=== PATIENT | male | born 1990 | race African-American/Black ===

== ENCOUNTER 2016-06-06 23:36 | Emergency (ER) | payer BC, OTHER ==
[2016-06-06 23:55] VITALS: BP 159/106; TEMP 97.5; O2SAT 99
[2016-06-06] MEDS ORDERED: LIDOCAINE 1% 10 ML VIAL INJ ONE (23:56)
[2016-06-06] MEDS ORDERED: POVIDONE IODINE 10 % 15 ML UD TOP ONE (23:59)
--- NOTE | 2016-06-07 00:39 | ED.PDOC ---
History of Present Illness - General Chief Complaint: Laceration Stated Complaint: lac to right hand Time Seen by Provider: 06/07/16 00:32 Source: patient - History of Present Illness Initial Comments: CUT ON PIECE OF METAL. TETANUS NOT UTD Timing/Duration: 1 hour Severity: mild Improving Factors: nothing Worsening Factors: nothing Associated Symptoms: denies symptoms Allergies/Adverse Reactions: Allergies NO KNOWN ALLERGY Allergy (Verified 06/06/16 23:50) Home Medications: Ambulatory Orders Cephalexin Monohydrate [Keflex] 500 mg PO TID #15 cap 06/07/16 Review of Systems - Review of Systems Constitutional: Denies: chills, fever Musculoskeletal: States: other - R HAND PAIN. Denies: back pain, neck pain Skin: States: other - LACERATION Neurological: Denies: numbness, tingling Past Medical History (General) - Patient Medical History Hx Seizures: No Hx Stroke: No Hx Dementia: No Hx Asthma: No Hx of COPD: No Hx Cardiac Disorders: No Hx Congestive Heart Failure: No Hx Pacemaker: No Hx Hypertension: No Hx Thyroid Disease: No Hx Diabetes: No Hx Gastroesophageal Reflux: No Hx Renal Disease: No Hx Cancer: No Hx of HIV: No Hx Hepatitis C: No Hx MRSA: No MRSA Source:: Wound Surgical History: no surgical history - Vaccination History Hx Tetanus, Diphtheria Vaccination: No Hx Influenza Vaccination: No Hx Pneumococcal Vaccination: No - Social History Hx Tobacco Use: Yes Hx Chewing Tobacco Use: No Hx Alcohol Use: Yes Hx Substance Use: No Hx Substance Use Treatment: No Hx Depression: No Hx Physical Abuse: No Hx Emotional Abuse: No Hx Suspected Abuse: No - Female History Patient : No Family Medical History - Family History Mother Family History: Unknown Living Status: Still Living Hx Family Diabetes: Yes - grandmother has diabetes Physical Exam - Physical Exam General Appearance: Alert, Comfortable, No apparent distress Eye Exam: bilateral normal Peripheral Pulses: radial,right: 2+ Back Exam: no CVA tenderness, no vertebral tenderness Extremity: other - LACERATION TO PALM R HAND BETWEEN THE THENAR AND HYPOTHENAR EMINENCE. Neurologic: normal mood/affect, oriented x 3 Skin Exam: normal color, warm/dry, other - SEE MS Lymphatic: no adenopathy Procedures - Laceration/Wound Repair Right Arm Wound Length (cm): 2.0 - PALMAR ASPECT OF RIGHT HAND Wound's Depth, Shape: flap Wound Explored: no foreign body removed Betadine Prep?: Yes Anesthesia: 1% Lidocaine Wound Repaired With: sutures Suture Size/Type: 4:0, prolene Layer Closure?: No Sterile Dressing Applied?: Yes Splint Applied?: No Departure - Departure Clinical Impression: Laceration of hand Qualifiers: Encounter type: initial encounter Laterality: right Qualifier Code: (S61.411A) Laceration without foreign body of right hand, initial encounter Time of Disposition: 01:02 Disposition: Discharge to Home or Self Care Condition: Excellent Departure Forms: ED Discharge - Pt. Copy, Patient Portal Self Enrollment Instructions: DI for Laceration Repair Prescriptions: Cephalexin Monohydrate [Keflex] 500 mg PO TID #15 cap Home Medications: Ambulatory Orders Cephalexin Monohydrate [Keflex] 500 mg PO TID #15 cap 06/07/16
[2016-06-07] MEDS ORDERED: TETANUS,DIPHTHERIA,PERTUSSIS 1 EA SYG IM ONE (00:50)
== END 2016-06-07 01:10 | disposition home or self-care (01) ==
LOC: ER 23:36
DX: S61.411A Laceration without foreign body of right hand, initial encounter (principal); Z87.891 Personal history of nicotine dependence; W45.8XXA Other foreign body or object entering through skin, initial encounter

== ENCOUNTER 2016-09-12 15:28 | Emergency (ER) | payer SELFPAY ==
--- NOTE | 2016-09-12 16:17 | RAD ---
EXAM DESCRIPTION: XR CHEST 2 VIEWS CLINICAL HISTORY: acute transient left sided chest pain COMPARISON: January 15, 2009 TECHNIQUE: PA/lateral FINDINGS: There is no cardiac or pulmonary abnormality. The lungs are clear. There is no effusion. IMPRESSION: 1. Normal two-view chest. Electronically signed by: Lenny Paige MD 09/12/2016 4:17 PM CDT
--- NOTE | 2016-09-12 16:43 | ED.PDOC ---
History of Present Illness - General Chief Complaint: Abdominal Pain Stated Complaint: Abdominal discomfort x 15 minutes Time Seen by Provider: 09/12/16 15:56 Source: patient Exam Limitations: no limitations - History of Present Illness Initial Comments: The patient is a 26-year-old male presenting to the emergency room secondary to acute onset of severe left-sided chest pain with associated shortness of breath. The pain shortness of breath were transient resolving within about 10- 15 minutes. It was a stabbing pulling type pain. He does have a known history of a hiatal hernia. No history of any pneumothoraces in the past. No fever. No chest pain prior. The pain occurred when he was laying on his left side and then went to get up to a sitting position. No previous rib injuries. No weakness. No palpitations.he did feel a pop at the onset. Symptoms have largely resolved by the time he arrived here. He is still significantly anxious. Timing/Duration: momentarily Severity: severe Improving Factors: nothing Worsening Factors: nothing Associated Symptoms: shortness of breath Allergies/Adverse Reactions: Allergies NO KNOWN ALLERGY Allergy (Verified 09/12/16 15:40) Home Medications: Ambulatory Orders Omeprazole 40 mg PO DAILY 09/12/16 Review of Systems - Review of Systems Constitutional: States: no symptoms reported EENTM: States: no symptoms reported Respiratory: States: short of breath Cardiology: States: chest pain Gastrointestinal/Abdominal: States: no symptoms reported Genitourinary: States: no symptoms reported Musculoskeletal: States: no symptoms reported Skin: States: no symptoms reported Neurological: States: anxiety All other Systems: No Change from Baseline Past Medical History (General) - Patient Medical History Hx Seizures: No Hx Stroke: No Hx Dementia: No Hx Asthma: Yes Hx of COPD: No Hx Cardiac Disorders: No Hx Congestive Heart Failure: No Hx Pacemaker: No Hx Hypertension: No Hx Thyroid Disease: No Hx Diabetes: No Hx Gastroesophageal Reflux: No Hx Renal Disease: No Hx Cancer: No Hx of HIV: No Hx Hepatitis C: No Hx MRSA: No MRSA Source:: Wound Surgical History: tonsillectomy - Vaccination History Hx Tetanus, Diphtheria Vaccination: Yes Hx Influenza Vaccination: No Hx Pneumococcal Vaccination: No - Social History Hx Tobacco Use: No Hx Chewing Tobacco Use: No Hx Alcohol Use: Yes Hx Substance Use: No Hx Substance Use Treatment: No Hx Depression: No Hx Physical Abuse: No Hx Emotional Abuse: No Hx Suspected Abuse: No - Female History Patient : No Family Medical History - Family History Mother Family History: Unknown Living Status: Still Living Hx Family Diabetes: Yes - grandmother has diabetes Physical Exam - Physical Exam General Appearance: Alert, Anxious, No apparent distress Eye Exam: bilateral normal Ears, Nose, Throat: hearing grossly normal, normal ENT inspection, normal pharynx Neck: non-tender, full range of motion, supple Respiratory: chest non-tender, lungs clear, normal breath sounds, no respiratory distress, no accessory muscle use Cardiovascular/Chest: normal peripheral pulses, regular rate, rhythm, no edema Peripheral Pulses: radial,right: 2+, radial,left: 2+, dorsalis pedis,right: 2+, dorsalis pedis,left: 2+, posterior tibialis,right: 2+, posterior tibialis,left: 2+ Gastrointestinal/Abdominal: non tender, soft Rectal Exam: deferred Back Exam: normal inspection, no CVA tenderness, no vertebral tenderness Extremity: normal range of motion, non-tender, normal inspection, no pedal edema , normal capillary refill Neurologic: alert, normal mood/affect, oriented x 3 Skin Exam: normal color Comments: Vital Signs - 24 hr 09/12/16 15:42 Temperature 98.2 F Pulse Rate [ 92 H Left Radial] Respiratory 18 Rate Blood Pressure 123/73 [Left Arm] O2 Sat by Pulse 96 Oximetry Progress - Progress Progress: 09/12/16 16:43 the patient is a 26-year-old male presenting with acute onset chest pain that was transient. Source is not entirely certain however most likely etiologies include pain from his hiatal hernia getting caught versus pleuritic chest pain or transient costochondral pain. No evidence of pneumothorax on chest x-ray. Shortness of breath has essentially resolved. The patient will be discharged home. ER warnings were given. He should follow-up with his primary care doctor early next week. Departure - Departure Clinical Impression: Chest pain Qualifiers: Chest pain type: unspecified Qualified Code(s): R07.9 - Chest pain, unspecified Disposition: Discharge to Home or Self Care Condition: Fair Departure Forms: ED Discharge - Pt. Copy, Patient Portal Self Enrollment Instructions: DI for Abdominal Pain-Adult Diet: regular diet Activity: increase activity as tolerated Referrals: Ermias Garner MD [Primary Care Provider] - 1-5 Days Home Medications: Ambulatory Orders Omeprazole 40 mg PO DAILY 09/12/16 Additional Instructions: the patient is a 26-year-old male presenting with acute onset chest pain that was transient. Source is not entirely certain however most likely etiologies include pain from his hiatal hernia getting caught versus pleuritic chest pain or transient costochondral pain. No evidence of pneumothorax on chest x-ray. Shortness of breath has essentially resolved. The patient will be discharged home. ER warnings were given. He should follow-up with his primary care doctor early next week.
[2016-09-12 17:13] VITALS: BP 133/81; TEMP 98.3; O2SAT 95
== END 2016-09-12 17:00 | disposition home or self-care (01) ==
LOC: ER 15:28
DX: R07.9 Chest pain, unspecified (principal); K44.9 Diaphragmatic hernia without obstruction or gangrene; R06.02 Shortness of breath; J45.909 Unspecified asthma, uncomplicated

== ENCOUNTER → 2017-06-05 | Outpatient (CLI) | payer BC, OTHER ==
--- NOTE | 2017-06-06 23:43 | US ---
Procedure: US GALLBLADDER Exam Date: 06/05/2017 Ordering Provider: ARSLAN SALGUERO Clinical Indication: GENERALIZED ABDOMINAL PAIN Comparison: None Technique: Real-time ultrasonography was obtained over the right upper quadrant and charter representative images were recorded. Findings: There are no gallstones within the gallbladder lumen. There is no gallbladder wall thickening or pericholecystic fluid. The gallbladder is normal in size and contour. The extrahepatic common duct is normal in size measuring 4.3 mm. The liver is normal in size and contour. There is normal echogenicity throughout the liver. There is no hepatic mass. There is no intrahepatic ductal dilatation. Pancreas is obscured by overlying bowel gas. There is no ascites. Limited evaluation of the right kidney demonstrates no hydronephrosis. Impression: Negative gallbladder ultrasound. Electronically signed by: Joe Hartman MD 06/06/2017 11:42 PM [employer]
== END ==
LOC: US 08:20
PROVIDERS: ATTEND Nurse Practitioner Family
DX: R10.84 Generalized abdominal pain (principal)

== ENCOUNTER 2018-09-16 11:23 | Emergency (ER) | payer BC, OTHER ==
[2018-09-16] MEDS: KETOROLAC TROMETHAMINE INJ 30 MG/ML VIAL IM ONE (11:48)
[2018-09-16] MEDS: ONDANSETRON ODT 8 MG TAB SL ONE (11:48)
[2018-09-16 11:52] VITALS: TEMP 98.1
[2018-09-16 12:38] VITALS: BP 104/63; O2SAT 97
--- NOTE | 2018-09-16 12:38 | ED.PDOC ---
History of Present Illness - General Chief Complaint: General Time Seen by Provider: 09/16/18 11:39 Source: patient Exam Limitations: no limitations - History of Present Illness Initial Comments: patient comes in today for 1 day history of body aches and nausea. He denies any fever, chills, cough or cold symptoms. He has no sore throat but some loose stools. No sick contacts that he is aware of. He states he was working at the [employer] and just wanted to go home because he wasn't feeling well and they said he had to come to the emergency room and be checked out. He has no past medical history withe exception of asthma is only allergies are to Bactrim. Timing/Duration: 24 hours Severity: mild Improving Factors: nothing Worsening Factors: nothing Associated Symptoms: nausea/vomiting, other - body aches Allergies/Adverse Reactions: Allergies Sulfamethoxazole w/Trimethoprim [From Bactrim] Allergy (Verified 09/16/18 11:41) Headache Home Medications: Ambulatory Orders NK 09/16/18 Review of Systems - Review of Systems Constitutional: States: malaise EENTM: States: no symptoms reported. Denies: eye pain, ear discharge, nose congestion, throat pain Respiratory: States: no symptoms reported. Denies: cough, short of breath Cardiology: States: no symptoms reported. Denies: chest pain Gastrointestinal/Abdominal: States: diarrhea, nausea. Denies: abdominal pain, constipation, vomiting Genitourinary: States: no symptoms reported Past Medical History (General) - Patient Medical History Hx Seizures: No Hx Stroke: No Hx Dementia: No Hx Asthma: Yes Hx of COPD: No Hx Cardiac Disorders: No Hx Congestive Heart Failure: No Hx Pacemaker: No Hx Hypertension: No Hx Thyroid Disease: No Hx Diabetes: No Hx Gastroesophageal Reflux: No Hx Renal Disease: No Hx Cancer: No Hx of HIV: No Hx Hepatitis C: No Hx MRSA: No MRSA Source:: Wound Surgical History: tonsillectomy - Vaccination History Hx Tetanus, Diphtheria Vaccination: Yes - 2017 Hx Influenza Vaccination: No Hx Pneumococcal Vaccination: No - Social History Hx Tobacco Use: Yes Hx Chewing Tobacco Use: No Hx Alcohol Use: Yes - Occasional Hx Substance Use: No Hx Substance Use Treatment: No Hx Depression: No Hx Physical Abuse: No Hx Emotional Abuse: No Hx Suspected Abuse: No - Female History Patient : No Family Medical History - Family History Mother Family History: Unknown Living Status: Still Living Hx Family Diabetes: Yes - grandmother has diabetes Physical Exam - Physical Exam General Appearance: Alert, Comfortable, No apparent distress Eye Exam: bilateral normal Ears, Nose, Throat: hearing grossly normal, normal ENT inspection, normal pharynx Neck: non-tender, full range of motion, supple, normal inspection Respiratory: chest non-tender, lungs clear, normal breath sounds Cardiovascular/Chest: normal peripheral pulses, regular rate, rhythm, no edema, no gallop, no murmur Peripheral Pulses: radial,right: 2+, radial,left: 2+ Gastrointestinal/Abdominal: normal bowel sounds, non tender, soft Back Exam: no CVA tenderness Neurologic: alert, oriented x 3 Progress - Results/Orders Results/Orders: 09/16/18 11:45 STREP A SCREEN CULTURE Stat Laboratory Results WBC 6.9 K/mm3 (4.8-10.8) 09/16/18 11:45 RBC 5.06 M/mm3 (4.70-6.10) 09/16/18 11:45 Hgb 15.2 gm/dL (14.0-18.0) 09/16/18 11:45 Hct 45.4 % (42.0-52.0) 09/16/18 11:45 MCV 89.6 fl (80.0-94.0) 09/16/18 11:45 MCH 29.9 pg (27.0-31.0) 09/16/18 11:45 MCHC 33.4 g/dL (33.0-37.0) 09/16/18 11:45 RDW 14.6 % (11.5-14.5) H 09/16/18 11:45 Plt Count 205 K/mm3 (130-400) 09/16/18 11:45 MPV 8.7 fl (7.40-10.4) 09/16/18 11:45 Absolute Neuts (auto) 5.30 K/uL (1.8-6.8) 09/16/18 11:45 Absolute Lymphs (auto) 0.90 K/uL (1.0-3.4) L 09/16/18 11:45 Absolute Monos (auto) 0.60 K/uL (0.2-0.8) 09/16/18 11:45 Absolute Eos (auto) 0.10 K/uL (0.0-0.4) 09/16/18 11:45 Absolute Basos (auto) 0.00 K/uL (0.0-0.1) 09/16/18 11:45 Neutrophils % 77.0 % (42.0-78.0) 09/16/18 11:45 Lymphocytes % 12.8 % (20.0-50.0) L 09/16/18 11:45 Monocytes % 8.4 % (2.0-9.0) 09/16/18 11:45 Eosinophils % 1.3 % (1.0-5.0) 09/16/18 11:45 Basophils % 0.5 % (0.0-2.0) 09/16/18 11:45 Sodium 139 mmol/L (135-145) 09/16/18 11:45 Potassium 3.8 mmol/L (3.6-5.0) 09/16/18 11:45 Chloride 104 mmol/L (101-111) 09/16/18 11:45 Carbon Dioxide 25 mmol/L (21-31) 09/16/18 11:45 Anion Gap 13.8 (12-18) 09/16/18 11:45 BUN 10 mg/dL (7-18) 09/16/18 11:45 Creatinine 0.74 mg/dL (0.6-1.3) 09/16/18 11:45 BUN/Creatinine Ratio 13.5 (10-20) 09/16/18 11:45 Random Glucose 103 mg/dL (70-105) 09/16/18 11:45 Serum Osmolality 276.8 mOsm/L (275-295) 09/16/18 11:45 Calcium 9.5 mg/dL (8.4-10.2) 09/16/18 11:45 Total Bilirubin 0.7 mg/dL (0.2-1.0) 09/16/18 11:45 AST 18 IU/L (10-42) 09/16/18 11:45 ALT 15 IU/L (10-60) 09/16/18 11:45 Alkaline Phosphatase 41 IU/L (42-121) L 09/16/18 11:45 Serum Total Protein 7.8 gm/dL (6.4-8.2) 09/16/18 11:45 Albumin 4.7 g/dl (3.2-5.5) 09/16/18 11:45 Globulin 3.1 gm/dL (2.3-3.5) 09/16/18 11:45 Albumin/Globulin Ratio 1.5 (1.1-1.9) 09/16/18 11:45 Group A Strep Rapid Negative (NEGATIVE) 09/16/18 11:45 Departure - Departure Clinical Impression: Viral syndrome Disposition: Discharge to Home or Self Care Condition: Good Departure Forms: ED Discharge - Pt. Copy, ED Discharge - Work Release, Patient Portal Self Enrollment Referrals: Ermias Garner MD [Primary Care Provider] - 1-2 Weeks Home Medications: Ambulatory Orders NK 09/16/18 Additional Instructions: bland diet and increase liquids, tylenol and motrin otc for pain. Rest and return to ER for severe abdominal pain, intractable emesis. Will need work excuse for today and tomorrow
== END 2018-09-16 12:42 | disposition home or self-care (01) ==
LOC: ER 11:23
DX: B34.9 Viral infection, unspecified (principal); J45.909 Unspecified asthma, uncomplicated; Z87.891 Personal history of nicotine dependence; Z88.2 Allergy status to sulfonamides
CPT/HCPCS: 36415; 80053; 85025; 87070; 87880; J1885

== ENCOUNTER 2019-04-08 20:19 | Emergency (ER) | payer SELFPAY ==
--- NOTE | 2019-04-08 22:17 | RAD ---
EXAM: XR Chest, 1 View CLINICAL HISTORY: The patient is 28 years old and is Male; chest tightness, cough, fever TECHNIQUE: Frontal view of the chest. COMPARISON: Chest radiograph September 12, 2016. FINDINGS: LUNGS: Unremarkable. No consolidation. PLEURAL SPACE: Unremarkable. No pneumothorax. HEART: Unremarkable. No cardiomegaly. MEDIASTINUM: Unremarkable. BONES/JOINTS: Unremarkable. IMPRESSION: No acute cardiopulmonary process. Electronically signed by: Jessi Russell MD 04/08/2019 10:16 PM [facility]
--- NOTE | 2019-04-08 22:30 | ED.PDOC ---
History of Present Illness - General Chief Complaint: Fever Stated Complaint: fever, body aches Time Seen by Provider: 04/08/19 22:23 Source: patient, RN notes reviewed, Vital Signs reviewed, family - [id number] Exam Limitations: no limitations - History of Present Illness Initial Comments: Patient is a 28-year-old male who presents with complaints of fever, cough, runny nose, sore throat and body aches x4 days. Nothing seems to make the symptoms better. It is worse when he exerts himself or takes a deep breath or when he is coughing. The cough is nonproductive. The symptoms are moderate in severity.Patient denies any headache, blurry vision, chest pain, nausea, vomiting, diarrhea. Timing/Duration: other - 4 days Severity: moderate Improving Factors: nothing Worsening Factors: movement Associated Symptoms: cough, fever/chills, malaise Allergies/Adverse Reactions: Allergies Sulfamethoxazole w/Trimethoprim [From Bactrim] Allergy (Verified 09/16/18 11:41) Headache Home Medications: Ambulatory Orders NK 09/16/18 Review of Systems - Review of Systems Constitutional: States: see HPI, chills, diaphoresis, fever, malaise EENTM: States: see HPI, nose congestion, throat pain Respiratory: States: see HPI, cough, short of breath. Denies: stridor, wheezing Cardiology: States: no symptoms reported. Denies: palpitations, syncope Gastrointestinal/Abdominal: States: no symptoms reported. Denies: constipation, diarrhea, nausea Genitourinary: States: no symptoms reported. Denies: dysuria, frequency, hematuria Musculoskeletal: States: see HPI, joint pain, muscle pain. Denies: neck pain Skin: States: no symptoms reported, see HPI Neurological: States: no symptoms reported Endocrine: States: no symptoms reported Hematologic/Lymphatic: States: no symptoms reported All other Systems: Reviewed and Negative Past Medical History (General) - Patient Medical History Hx Seizures: No Hx Stroke: No Hx Dementia: No Hx Asthma: Yes Hx of COPD: No Hx Cardiac Disorders: No Hx Congestive Heart Failure: No Hx Pacemaker: No Hx Hypertension: No Hx Thyroid Disease: No Hx Diabetes: No Hx Gastroesophageal Reflux: No Hx Renal Disease: No Hx Cancer: No Hx of HIV: No Hx Hepatitis C: No Hx MRSA: No MRSA Source:: Wound - Vaccination History Hx Tetanus, Diphtheria Vaccination: Yes - 2017 Hx Influenza Vaccination: No Hx Pneumococcal Vaccination: No - Social History Hx Tobacco Use: Yes Hx Chewing Tobacco Use: No Hx Alcohol Use: Yes - Occasional Hx Substance Use: No Hx Substance Use Treatment: No Hx Depression: No Hx Physical Abuse: No Hx Emotional Abuse: No Hx Suspected Abuse: No - Female History Patient : No Family Medical History - Family History Mother Family History: Unknown Living Status: Still Living Hx Family Diabetes: Yes - grandmother has diabetes Physical Exam - Physical Exam General Appearance: Alert, Comfortable, Well Developed, Well Groomed, Well Hydrated, Well Nourished Eye Exam: bilateral normal Ears, Nose, Throat: hearing grossly normal, normal ENT inspection, normal pharynx Neck: non-tender, full range of motion, supple, lymphadenopathy (R), lymphadenopathy (L) Respiratory: chest non-tender, lungs clear, normal breath sounds, no respiratory distress, no accessory muscle use Cardiovascular/Chest: normal peripheral pulses, no edema, no gallop, no JVD, no murmur, tachycardia Peripheral Pulses: radial,right: 2+, radial,left: 2+ Gastrointestinal/Abdominal: normal bowel sounds, non tender, soft, no organomegaly, no pulsatile mass Back Exam: normal inspection, no CVA tenderness, no vertebral tenderness Extremity: normal range of motion, non-tender, normal inspection, no pedal edema Neurologic: linen controller II-XII nml as tested, no motor/sensory deficits, alert, normal mood/affect, oriented x 3 Skin Exam: normal color, warm/dry Lymphatic: no adenopathy Progress - Progress Progress: Differential diagnosis: Influenza, strep, pneumonia, viral URI among others. 04/08/19 22:33 Patient is not a candidate for Tamiflu as the symptoms have been ongoing for 4 days. Plan on discharge home with recommendation of alternating Tylenol and Motrin every 4 hours. I discussed this plan of care with the patient and his [id number] and they voiced understanding and agreement. Plan on work note and patient may return on Thursday to work. Jg Ly M.D. #[id number] - Results/Orders Results/Orders: 04/08/19 21:14 STREP A SCREEN CULTURE Stat Laboratory Results - last 24 hr 04/08/19 21:14 Group A Strep Rapid Negative Influenza A negative Influenza B positive Departure - Departure Clinical Impression: Influenza B Time of Disposition: 22:34 Disposition: Discharge to Home or Self Care Condition: Good Departure Forms: ED Discharge - Pt. Copy, Patient Portal Self Enrollment Instructions: DI for Fever (Symptom) -- Adult, Flu, Adult (DC) Referrals: Ermias Garner MD [Primary Care Provider] - 1-2 Weeks Home Medications: Ambulatory Orders NK 09/16/18
[2019-04-09 00:38] VITALS: O2SAT 96
[2019-04-09 00:50] VITALS: BP 129/78; TEMP 99.1
== END 2019-04-08 22:57 | disposition home or self-care (01) ==
LOC: ER 20:19
DX: J10.1 Influenza due to other identified influenza virus with other respiratory manifestations (principal); J45.909 Unspecified asthma, uncomplicated; Z87.891 Personal history of nicotine dependence; Z88.2 Allergy status to sulfonamides